=== PATIENT | female | born 2005 | race African-American/Black ===

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

== ENCOUNTER 2025-03-02 15:28 | Outpatient (CLI) | payer BC | END 2025-03-02 15:29 | disposition home or self-care (01) | LOC: CSHRAD 15:28 | PROVIDERS: ATTEND Radiology Diagnostic Radiology | DX: Z11.1 Encounter for screening for respiratory tuberculosis (principal) | CPT/HCPCS: 71046 ==